=== PATIENT | male | born 1940 | race Two or more races ===

== ENCOUNTER 2017-03-15 10:10 | Emergency (ER) | payer MEDICARE, OTHER ==
[~2017-03-15] VITALS: Ht 175.3 cm; Wt 99.8 kg
[2017-03-15 10:40] VITALS: BP 159/66
--- NOTE | 2017-03-15 10:57 | Emergency Room Report ---
History of Present Illness General Chief Complaint: Pain Source: Patient, Family Member Present Illness HPI 56-year-old male history of hypertension CAD no sense on aspirin history of DVT in right leg presenting with right lower extremity pain for 3 weeks. history is obtained by sao tomean speaking vice president of manufacturing. Patient states pain occurs both at rest and on walking. Patient also reports some redness to toes. Patient denies any tingling to toes. ?pt on coumadin. Patient states he takes some blood thinner but does not recall the name but states he has to get his blood checked every month. Pt also states toes have been red and painful. denies any coldness to ext. Denies fever chills chest pain shortness of breath nausea vomiting diarrhea. Denies smoking. Family states that patient was supposed to followup with primary care doctor however pt had mechanical fall from standing about 3 weeks ago. Patient hit his head. There was no LOC. Patient has had dull chronic headaches since incident. There has been no altered mental status no syncopal episodes Allergies: Coded Allergies: No Known Allergies (Unverified , 03/15/17) Patient History Past Medical History: HTN, CAD, other - dvt Past Surgical History: none Pertinent Family History: none Nursing Documentation-PMH Hx Cardiac Problems: Yes - MO Hx Hypertension: Yes - discectomy Review of Systems Musculoskeletal: Reports: other - rle pain swelling Neurological: Reports: headache All Other Systems: negative except mentioned in HPI Physical Exam Vital Signs Date Time Temp Pulse Resp B/P Pulse Ox O2 Delivery O2 Flow Rate FiO2 03/15/17 10:11 98.1 80 18 159/66 95 Room Air Sp02 EP Interpretation: normal General Appearance: normal inspection, no apparent distress, alert, GCS 15, non -toxic Head: normocephalic, atraumatic Eyes: bilateral eye EOMI, bilateral eye PERRL, bilateral eye normal inspection ENT: normal ENT inspection, normal pharynx, normal voice, moist mucus membranes Neck: normal inspection, full range of motion, supple Respiratory: normal inspection, lungs clear, normal breath sounds, no respiratory distress, no retraction, no wheezing, speaking full sentences, chest symmetrical Cardiovascular #1: normal inspection, regular rate, rhythm, normal capillary refill Gastrointestinal: normal inspection, non tender, soft, non-distended, no guarding Genitourinary: no CVA tenderness Musculoskeletal: back normal, other - RLE tenderness from knee to toes, mostly on toes, +redness of toes, slight warmth, ext is warm/well perfused, dec DP pulse however is palpable Neurologic: normal inspection, alert, oriented x3, responsive, plastics heat welder III-XII nml as tested, motor strength/tone normal, sensory intact, normal gait, speech normal Medical Decision Making Medicare Attestation I, Verito Pedersen MD hereby attest that the medical record entry for date of service, 03/16/17 accurately reflects signatures/notations that I made in my capacity as MD when I treated/diagnosed the above listed Medicare beneficiary. I attest that this information is true, accurate and complete to the best of my knowledge. I understand that any falsification, omission, or concealment of material fact may subject me to administrative, civil, or criminal liability. This patient warrants hospital admission for extreme of age and has a condition that cannot be treated as outpatient. Diagnostic Impression: Primary Impression: Arterial occlusion, lower extremity ER Course 76-year-old male history of DVT presents with right lower extremity pain for 3 weeks. 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 Disposition: pt requires higher level of care for RLE vascular occlusion patient is to be transferred to hospital with vascular surgery EKG Diagnostic Results Rate: normal Rhythm: NSR ST Segments: other - TWI inferolateral ASA given to the pt in ED: No Last Vital Signs Date Time Temp Pulse Resp B/P Pulse Ox O2 Delivery O2 Flow Rate FiO2 03/15/17 10:11 98.1 80 18 159/66 95 Room Air Disposition: XFER SHT-TRM HOSP RetinVerito trinh M.D. Mar 15, 2017 10:57
--- NOTE | 2017-03-15 11:51 | Diagnostic Imaging Report ---
Indications: Dizziness Technique: Spiral acquisitions obtained through the brain. Angled axial and coronal 5 x 5 mm slices were reconstructed. Total dose length product 1400 mGycm. CTDI vol(s) 70 mGy. Dose reduction achieved using automated exposure control Comparison: None Findings: There is very mild age-related enlargement of ventricles and extra-axial CSF spaces, minimal periventricular the white matter chronic ischemic change. No evidence of acute hemorrhage or edema, mass effect, or midline shift. Normal zarate-white differentiation. Intact calvarium. Visualized orbits are unremarkable. The mastoids are clear. There is evidence of prior bilateral cataract surgery There is bilateral ethmoid sinus disease Impression: Age-related changes. Negative for acute intracranial bleed or mass effect Minimal sinus disease The CT scanner at [facility] is accredited by the [employer] and the scans are performed using protocols designed to limit radiation exposure to as low as reasonably achievable to attain images of sufficient resolution adequate for diagnostic evaluation.
[2017-03-15 12:00] VITALS: BP 146/73
[2017-03-15 12:07] LABS: BASOPHILS % (AUTO) 0.5 % (0.0-2.0); EOSINOPHILS % (AUTO) 6.8 % (0.0-3.0); LYMPHOCYTES % (AUTO) 22.7 % (20.0-45.0); MEAN CORPUSCULAR HEMOGLOBIN 31.7 PG (27.0-31.0); MEAN CORPUSCULAR HGB CONC 32.4 G/DL (32.0-36.0); MEAN CORPUSCULAR VOLUME 98 FL (80-99); MEAN PLATELET VOLUME 7.1 FL (6.5-10.1); MONOCYTES % (AUTO) 7.3 % (1.0-10.0); NEUTROPHILS % (AUTO) 62.6 % (45.0-75.0); PLATELET COUNT 206 K/UL (150-450); RED BLOOD COUNT 4.02 M/UL (4.70-6.10); RED CELL DISTRIBUTION WIDTH 15.4 % (11.6-14.8); WHITE BLOOD COUNT 7.1 K/UL (4.8-10.8)
[2017-03-15 12:23] LABS: TROPONIN I < 0.30 ng/mL (<=0.30)
[2017-03-15 12:27] LABS: INR 0.9 (0.9-1.1); PROTHROMBIN TIME 9.4 SEC (9.30-11.50)
[2017-03-15 12:28] LABS: ANION GAP 12 (5-15); CALCIUM 9.3 mg/dL (8.6-10.2); CARBON DIOXIDE 26 mEQ/L (20-30); CHLORIDE 101 mEQ/L (98-107); CREATININE 1.3 mg/dL (0.7-1.2); HEMOLYSIS 178; POTASSIUM 5.1 mEQ/L (3.4-4.9); SODIUM 139 mEQ/L (135-145)
[2017-03-15] MEDS ORDERED: Morphine Sulfate 4mg/ml Inj ONE (12:45)
[2017-03-15] MEDS ORDERED: Morphine Sulfate 4mg/ml Inj IVP ONE ×2 (12:45→14:45)
[2017-03-15] MEDS ORDERED: Vancomycin 1.5gm/D5W 250ml 250 ML IVPB ONE (13:15)
[2017-03-15 13:34] VITALS: BP 194/68
[2017-03-15] MEDS ORDERED: Heparin 5000 units/ml inj IV ONE (13:45)
[2017-03-15] MEDS ORDERED: Heparin 25,000u/D5W 500ml 500 ML IV SCH (13:45)
[2017-03-15] MEDS ORDERED: TRAMADOL HCL50 MG ORAL (13:59)
[2017-03-15] MEDS ORDERED: ZETIA10 MG ORAL (13:59)
[2017-03-15] MEDS ORDERED: CRESTOR40 MG ORAL (13:59)
[2017-03-15] MEDS ORDERED: DEXILANT60 MG ORAL (13:59)
[2017-03-15] MEDS ORDERED: CREON DR 24,001 EACH PO (13:59)
[2017-03-15] MEDS ORDERED: DIOVAN HCT 1601 EAC1 ORAL (13:59)
[2017-03-15] MEDS ORDERED: ALLOPURINOL100 M1 ORAL (13:59)
[2017-03-15] MEDS ORDERED: GABAPENTIN600 MG ORAL (13:59)
[2017-03-15] MEDS ORDERED: SYMBICORT2 PUFF1 INH (13:59)
[2017-03-15] MEDS ORDERED: POTASSIUM CHLO10 ME2 PO (13:59)
[2017-03-15] MEDS ORDERED: NITROGLYCERIN0.4 MG SL (13:59)
[2017-03-15] MEDS ORDERED: REPATHA PU420 MG/3.5 SQ (13:59)
[2017-03-15] MEDS ORDERED: imdur PO (13:59)
[2017-03-15] MEDS ORDERED: RANEXA500 MG ORAL (13:59)
[2017-03-15] MEDS ORDERED: BYSTOLIC10 MG ORAL (13:59)
[2017-03-15 15:57] VITALS: BP 159/66
[2017-03-15] MEDS ORDERED: Enalaprilat 2.5mg/2ml Inj IV ONE (18:45)
[2017-03-15 19:00] VITALS: BP 163/68
--- NOTE | 2017-03-16 15:46 | Cardiology Report ---
APPROVED REPORT EKG Measurement Heart [id number] Sinus rhythm with 1st degree AV block Prolonged QT Abnormal ECG
== END 2017-03-15 19:00 | disposition left against medical advice (07) ==
LOC: EMR 11:29 → EDBEDREQTM 19:07 → EDBEDREQ 19:07
DX: I77.1 Stricture of artery (principal); Z91.81 History of falling; I25.2 Old myocardial infarction; I25.10 Atherosclerotic heart disease of native coronary artery without angina pectoris; I10 Essential (primary) hypertension; Z79.01 Long term (current) use of anticoagulants; Z86.718 Personal history of other venous thrombosis and embolism
CPT/HCPCS: 36415; 70450; 80048; 84484; 85025; 85610; 85730; 93005; 93926; 93971; 96361; 96374; 96375; 99284; J1644; J2270; J3370